=== PATIENT | female | born 1965 | race American Indian/Alaskan Native ===

== ENCOUNTER 2017-07-15 08:01 | Observation (INO) | payer MEDICARE ==
--- NOTE | 2017-07-13 12:06 | Anesthesia Consultation ---
Anesthesia Consult and Med Hx Date of service: 07/13/17 - Airway Anesthetic Teeth Evaluation: Good ROM Head & Neck: Adequate Mental/Hyoid Distance: Adequate Mallampati Class: Class II Intubation Access Assessment: Probably Good - Pulmonary Exam CTA: Yes - Cardiac Exam Cardiac Exam: RRR - Pre-Operative Health Status ASA Pre-Surgery Classification: ASA2 Proposed Anesthetic Plan: General - Pulmonary Hx Smoking: Yes Hx Asthma: Yes Hx Sleep Apnea: No - Cardiovascular System Hx Hypertension: Yes ("many years") Hx Heart Murmur: Yes - Central Nervous System Hx Back Pain: Yes Hx Psychiatric Problems: No - Endocrine Hx Hypothyroidism: Yes Hx Hyperthyroidism: Yes (pt took PTU, Propranolol this AM) - Other Systems Hx Alcohol Use: Yes (beer / wine cooler daily) Hx Cancer: No
[2017-07-13 12:55] LABS: Basophils % (Auto) 0.4 % (0.0-1.8); Eosinophils % (Auto) 0.8 % (0.0-4.3); Hematocrit 42.4 % (30.3-42.9); Hemoglobin 14.3 gm/dl (10.1-14.3); Mean Corpuscular HGB Conc 34 % (30-34); Mean Corpuscular Hemoglobin 33 pg (28-32); Mean Corpuscular Volume 98 fl (79-97); Platelet Count 245 K/mm3 (140-440); Red Blood Count 4.33 M/mm3 (3.65-5.03); Red Cell Distribution Width 12.9 % (13.2-15.2); White Blood Count 5.1 K/mm3 (4.5-11.0)
[2017-07-13 13:31] LABS: Anion Gap 15 mmol/L; BUN/Creatinine Ratio 14.28; Blood Urea Nitrogen 10 mg/dL (7-17); Calcium 9.3 mg/dL (8.4-10.2); Carbon Dioxide 30 mmol/L (22-30); Chloride 99.9 mmol/L (98-107); Glucose 106 mg/dL (65-100); Potassium 3.7 mmol/L (3.6-5.0); Sodium 141 mmol/L (137-145)
[2017-07-15] MEDS ORDERED: NACL 0.9% 1000 ML 1,000 ML IV SCH (09:00)
[2017-07-15] MEDS ORDERED: PEPCID PO NR (09:00)
[2017-07-15] MEDS ORDERED: VERSED IV NR (09:00)
[2017-07-15] MEDS ORDERED: NEURONTIN PO NR (09:00)
[2017-07-15] MEDS ORDERED: NACL 0.9% 1000 ML 1,000 ML ONE ×2 (09:08→11:47)
[2017-07-15] MEDS ORDERED: DIPRIVAN 10 MG/ML IV ONE (09:36)
[2017-07-15] MEDS ORDERED: SUBLIMAZE ONE (09:36)
--- NOTE | 2017-07-15 10:13 | History and Physical Report ---
History of Present Illness Date of examination: 07/15/17 Date of admission: 07/15/2017 Chief complaint: uterine fibroids History of present illness: 52-year-old to 23 with a history of symptomatic uterine fibroids. The patient's course has been complicated by postmenopausal bleeding and discomfort. The patient underwent a pelvic ultrasound with findings of an enlarged fibroid uterus with the largest dimension being 12.9 cm. The largest leiomyoma measured 4.2 cm. An endometrial biopsy was performed performed in office with findings of benign pathology. The patient elected to undergo definitive surgical management. Past History Past Medical History: hypertension, thyroid disease, other (uterine fibroids) Past Surgical History: other (tubal ligation; shoulder repair) Social history: single - Obstetrical History : 5 Para: 3 Hx # Term Pregnancies: 1 Number of Pregnancies: 2 Spontaneous Abortions: 1 Induced : 1 Number of Living Children: 3 Medications and Allergies Allergies Allergy/AdvReac Type Severity Reaction Status Date / Time latex Allergy Intermediate Hives Verified 07/13/17 14:32 Home Medications Medication Instructions Recorded Confirmed Last Taken Type Hydrochlorothiazide [HCTZ] 1 tab PO DAILY 02/05/15 07/15/17 07/14/17 09:00 History Propranolol HCl [Propranolol HCl 60 mg PO DAILY 02/05/15 07/15/17 07/15/17 06: 15 History ER] Propylthiouracil 50 mg PO TID 02/05/15 07/15/17 07/14/17 09:00 History Cholestyramine [Cholestyramine 4 gm PO PRN PRN 07/14/17 07/14/17 Unknown History Resin] oxyCODONE /ACETAMINOPHEN [Percocet 1 tab PO Q6HR PRN 07/14/17 07/15/17 07/14/17 18:00 History 5/325] Active Meds: Active Medications Sodium Chloride (Nacl 0.9% 1000 Ml) 1,000 mls @ 100 mls/hr IV DIRECT AMIRA Last Admin: 07/15/17 09:10 Dose: 100 mls/hr Midazolam HCl (Versed) 2 mg IV PREOP NR Stop: 07/15/17 12:00 Last Admin: 07/15/17 09:14 Dose: 2 mg Review of Systems All systems: negative Genitourinary: vaginal bleeding, pelvic pain - Vital Signs Vital signs: Vital Signs Temp Pulse Resp BP 98.1 F 68 16 136/88 07/13/17 12:05 07/13/17 12:05 07/13/17 12:05 07/13/17 12:05 Temp Pulse Resp BP Pulse Ox 98.0 F 54 L 18 161/77 96 07/15/17 09:00 07/15/17 09:00 07/15/17 09:11 07/15/17 09:00 07/15/17 09:00 - Physical Exam Breasts: Positive: deferred Cardiovascular: Regular rate Lungs: Positive: Clear to auscultation Abdomen: Positive: normal appearance Results Result Diagrams: 07/13/17 12:03 07/13/17 12:03 Abnormal lab results 07/15/17 Range/Units 08:22 HCG, Quant 4.56 H (0-4) mIU/mL All other labs normal. Assessment and Plan - Patient Problems (1) Leiomyoma Current Visit: Yes Status: Acute Plan to address problem: Scheduled for robotic hysterectomy and bilateral salpingo-oophorectomy (2) Postmenopausal bleeding Current Visit: Yes Status: Acute
[2017-07-15] MEDS ORDERED: XYLOCAINE MPF 2% ONE (10:34)
[2017-07-15] MEDS ORDERED: ZEMURON IV ONE (10:34)
[2017-07-15] MEDS ORDERED: DECADRON ONE (10:34)
[2017-07-15] MEDS ORDERED: NEOSPORIN GU IR ONE ×2 (10:51→12:15)
[2017-07-15] MEDS ORDERED: ANCEF/STERILE WATER 2 GM/20 ML 2 GM/20 ML SYRINGE IV SCH (11:00)
[2017-07-15] MEDS ORDERED: ePHEDrine SULFATE ONE (11:04)
[2017-07-15] MEDS ORDERED: GELFOAM POWDER 1GM MM ONE ×2 (11:40→12:15)
[2017-07-15] MEDS ORDERED: THROMBIN (BOVINE) TP ONE ×2 (11:41→12:15)
[2017-07-15] MEDS ORDERED: MARCAINE 0.5% 30 ML INFILTRATI ONE (11:41)
[2017-07-15] MEDS ORDERED: ZOFRAN ONE (11:55)
[2017-07-15] MEDS ORDERED: ROBINUL ONE ×2 (11:56→12:06)
[2017-07-15] MEDS ORDERED: DILAUDID ONE (12:03)
[2017-07-15] MEDS ORDERED: NEOSTIGMINE ONE (12:05)
[2017-07-15] MEDS ORDERED: NACL 0.9% IR ONE ×2 (12:15)
[2017-07-15] MEDS ORDERED: MARCAINE 0.5% INFILTRATI ONE (12:15)
[2017-07-15] MEDS ORDERED: NARCAN 0.4 MG/1 ML IV PRN (12:28)
--- NOTE | 2017-07-15 12:28 | Operative Report ---
Operative Report Operative Report: Date of surgery: 07/15/2017 Preoperative diagnoses: Symptomatic uterine fibroids; postmenopausal bleeding Postoperative diagnoses: same as above Procedure: Robotic hysterectomy; bilateral salpingo-oophorectomy Surgeon: Marianela Smith M.D. Senior Marketing Associate: Loi Lopez Anesthesia: Gen. endotracheal anesthesia Estimated blood loss: 50 milliliters Pathology: Uterus, cervix, fibroids, tubes and ovaries Indication: 52-year-old with a history of symptomatic uterine fibroids and postmenopausal bleeding. She had reported having intermittent bleeding and pelvic pain. She elected to undergo definitive surgical management. Procedure: The patient was taken to the operating room and given general endotracheal anesthesia without complication. She is prepped and draped in a normal sterile fashion. A bivalve speculum was placed in the patient's vagina and a single- tooth tenaculum placed on the anterior lip of the cervix. The uterus was sounded with the uterine sound. A [employer] uterine manipulator was placed in the bivalve speculum was then removed. Attention was then turned to the patient's abdomen where a millimeter supra umbilical skin incision was then made. A Veress needle was placed and peritoneal entry was verified water-filled syringe. Insufflation of the peritoneal cavity was performed with CO2 gas. The 12 mm trocar was then placed under direct visualization. An additional 8 mm trocar was placed on the patient's left and right lateral side just opposite of the supraumbilical trocar. An additional 5 mm right lateral trocar was then placed as the accessory port. The patient was then placed in steep Trendelenburg. The da Ju[place] robot was then engaged. A fenestrated forcep was placed in arm 2 and a vessel sealer was placed in arm 1. The surgeon then transferred to the surgical console. General survey of the patient's abdomen and pelvis revealed an enlarged fibroid uterus with normal tubes and ovaries . There were findings of an omental adhesion to the anterior abdominal wall. The adhesion was lysed with the vessel fill her. The mesosalpinx was then isolated on the right. The vessel sealer was used to coagulate the infundibulopelvic ligament which was then transected. The round ligament was then coagulated and transected also. The vesicouterine peritoneum was then entered from the patient's right side. The uterine vessels were then coagulated with the vessel sealer. The vessels were then transected . Attention was then turned to the patient's left side where the infundibulopelvic ligament and mesosalpinx were again isolated coagulated and transected. The vesical peritoneum was then entered from the left and joined in the midline. Peritoneum was reflected off of the lower uterine segment. Uterine vessels were then coagulated and then transected. The blood supply to the uterus was adequately contained, a posterior colpotomy was made. The V care ring was visualized. Posterior colpotomy was created with the monopolar scissors. The incision was continued circumferentially until anterior colpotomy was made. The cervix and uterus were amputated from the vaginal cuff. The uterus was then removed along with the tubes and ovaries bilaterally through the vagina and a warm laparotomy sponge was placed and maintain the pneumoperitoneum. The vaginal cuff was then closed in a running fashion with V lock suture. Irrigation of the pelvis was performed. Gelfoam with thrombin was applied to the incision. The supraumbilical 12 mm trocar site was closed with the Austin Maier device. The skin was then reapproximated with 4-0 Monocryl. The tissue was sent to pathology which included the cervix and uterus. The patient was then successfully extubated. She was then taken to the recovery room in stable condition. All sponge laps and needle counts were correct x2.
[2017-07-15] MEDS ORDERED: ZOFRAN IV PRN (12:29)
[2017-07-15] MEDS ORDERED: TYLENOL PO PRN (12:29)
[2017-07-15] MEDS ORDERED: MILK OF MAGNESIA PO PRN (12:29)
[2017-07-15] MEDS ORDERED: MOTRIN PO PRN (12:29)
[2017-07-15] MEDS ORDERED: PERCOCET 5/325 PO PRN (12:34)
[2017-07-15] MEDS ORDERED: PROVENTIL IH PRN (12:58)
[2017-07-15] MEDS ORDERED: TORADOL IV SCH (13:00)
[2017-07-15] MEDS ORDERED: MORPHINE PCA 30MG/30ML IV SCH (13:00)
[2017-07-15] MEDS ORDERED: D5LR 1,000 ML IV SCH (13:00)
[2017-07-15] MEDS ORDERED: PROVENTIL IH ONE (13:04)
[2017-07-15] MEDS ORDERED: DILAUDID IV NR (13:17)
--- NOTE | 2017-07-15 13:37 | Post Anesthesia Evaluation ---
- Post Anesthesia Evaluation Patient Participated: Yes Airway Patent: Yes Stable Respiratory Function: Yes Temp > 96.8F: Yes Pain Manageable: Yes Adequeate Hydration: Yes Anesthesia Complications: No
[2017-07-16 03:44] LABS: Hematocrit 37.2 % (30.3-42.9); Hemoglobin 12.9 gm/dl (10.1-14.3)
--- NOTE | 2017-07-16 08:19 | Progress Note ---
Assessment and Plan - Patient Problems (1) Leiomyoma Current Visit: Yes Status: Acute Plan to address problem: Patient doing well Discharge home (2) Postmenopausal bleeding Current Visit: Yes Status: Acute Subjective - Subjective Date of service: 07/16/17 Interval history: Patient without any significant complaints. Tolerating a regular diet without complication. The patient states her pain is well-controlled. Patient reports: appetite normal, voiding normally, pain well controlled Objective - Vital Signs Latest vital signs: Vital Signs Temp Pulse Resp BP BP Pulse Ox 07/16/17 07:35 20 07/16/17 04:15 98.6 F 77 16 121/81 07/16/17 00:00 98.6 F 81 16 117/72 07/15/17 19:30 98.6 F 70 16 137/86 07/15/17 18:15 18 07/15/17 17:00 98.1 F 87 18 124/78 07/15/17 16:15 18 07/15/17 15:00 97.9 F 59 L 16 148/98 148/98 100 07/15/17 14:30 55 L 12 143/92 97 07/15/17 14:15 54 L 12 145/94 98 07/15/17 14:00 54 L 12 133/97 95 07/15/17 13:45 53 L 13 132/86 97 07/15/17 13:30 53 L 15 138/98 96 07/15/17 13:15 53 L 17 155/84 100 07/15/17 13:00 51 L 19 151/76 97 07/15/17 12:55 53 L 21 158/80 94 07/15/17 12:50 56 L 12 141/87 94 07/15/17 12:45 54 L 18 150/83 96 07/15/17 12:39 97.4 F L 55 L 20 156/99 96 07/15/17 12:33 17 07/15/17 09:11 18 07/15/17 09:00 98.0 F 54 L 18 161/77 96 Intake and Output 07/15/17 07/16/17 07/16/17 22:59 06:59 14:59 Intake Total 660 Output Total 300 2100 Balance 360 -2100 Intake: Oral 360 Intake, Free Water 300 Output: Urine 300 2100 Indwelling Catheter 300 1700 Void 400 Other: Total, Intake Amount 240 Total, Output Amount 100 400 Voiding Method Indwelling Catheter # Voids Indwelling Catheter 0 Void 1 - Exam Abdomen: Present: normal appearance, soft Incision: Present: normal - Labs Labs: Abnormal lab results 07/15/17 Range/Units 08:22 HCG, Quant 4.56 H (0-4) mIU/mL
--- NOTE | 2017-07-16 08:20 | Discharge Summary ---
Providers - Providers Date of Admission: 07/15/17 12:29 Date of discharge: 07/16/17 Attending physician: RENATA LUU Primary care physician: HAO BATES Hospitalization Reason for admission: other (symptomatic uterine fibroids; postmenopausal bleeding) Procedure: other (robotic hysterectomy and bilateral salpingo-oophorectomy) Incision: normal Discharge diagnosis: other (symptomatic uterine fibroids; postmenopausal bleeding) Hospital course: The patient was admitted the day of surgery and underwent a robotic hysterectomy and bilateral salpingo-oophorectomy. Please see operative note for details of surgery. Postoperative course was uneventful. Condition at discharge: Good Disposition: [id number] TO HOME OR SELFCARE - Discharge Diagnoses (1) Leiomyoma Status: Acute (2) Postmenopausal bleeding Status: Acute Plan - Discharge Medications Prescriptions: Ibuprofen [Motrin] 800 mg PO Q8HR PRN #60 tablet PRN Reason: Pain Oxycodone HCl/Acetaminophen [Percocet 7.5/325 mg] 1 each PO Q6HR PRN #45 tablet PRN Reason: Pain - Provider Discharge Summary Activity: no sex for 6 weeks, no heavy lifting 4 weeks, no strenuous exercise Diet: routine Instructions: routine Additional instructions: [] Smoking cessation referral if applicable(refer to patient education folder for contact #) [] Refer to [facility] Booklet Call your doctor immediately for: * Fever > 100.5 * Heavy vaginal bleeding ( >1 pad per hour) * Severe persistent headache * Shortness of breath * Reddened, hot, painful area to leg or breast * Drainage or odor from incision. * Keep incision clean and dry at all times and follow doctor's instructions regarding bathing/showering Follow-up in [address] Luu - Follow up plan
[2017-07-16 09:44] VITALS: BP 113/72
== END 2017-07-16 10:45 | disposition home or self-care (01) ==
LOC: OR 08:01 → OB 12:29
PROVIDERS: ADMIT Obstetrics & Gynecology; ATTEND Obstetrics & Gynecology
DX: N95.0 Postmenopausal bleeding (principal); D25.9 Leiomyoma of uterus, unspecified; I10 Essential (primary) hypertension; Z98.51 Tubal ligation status
CPT/HCPCS: 36415; 58571; 80048; 84702; 84703; 85014; 85018; 85025; 86850; 86900; 86901; 88307; 88342; 96374; A4217; A4649; G0378; J0690; J1100; J1170; J2250; J2270; J2405; J2704; J2710; J3010; J7030; J7121; S2900